=== PATIENT | female | born 1960 | race Caucasian/White ===

== ENCOUNTER → 2017-01-03 | Outpatient (CLI) | payer BC ==
[2017-01-03 17:41] LABS: BASOPHILS # (AUTO) 0.02 10*3/UL; BASOPHILS % (AUTO) 0.3 % (0-1); EOSINOPHILS # (AUTO) 0.06 10*3/UL; EOSINOPHILS % (AUTO) 0.8 % (0-8); HEMATOCRIT 44.4 % (37.0-47.0); HEMOGLOBIN 14.7 g/dL (12.0-16.0); LYMPHOCYTES # (AUTO) 1.71 10*3/uL; MEAN CORPUSCULAR HEMOGLOBIN 27.1 PG (27-31); MEAN CORPUSCULAR HGB CONC 33.1 g/dL (33-37); MEAN CORPUSCULAR VOLUME 81.8 FL (81-99); MEAN PLATELET VOLUME 10.9 FL (7.4-12.2); MONOCYTES # (AUTO) 0.48 10*3/UL (0.3-0.8); MONOCYTES % (AUTO) 6.3 % (5-15); NEUTROPHILS # (AUTO) 5.34 10*3/UL; NEUTROPHILS % (AUTO) 69.8 % (50-80); RED BLOOD COUNT 5.43 10^6/uL (4.20-5.40)
[2017-01-03 17:48] LABS: BLOOD UREA NITROGEN 14 mg/dL (7-22); CALCIUM 9.7 mg/dL (8.7-10.7); CHOL/HDL RATIO 4.44 RATIO (0-4.0); EST GLOMERULAR FILTRATION > 60 (>60 ml/min/1.73m(2)); HDL CHOLESTEROL 47 mg/dL (40-150); SERUM ALBUMIN 4.4 g/dL (3.5-4.8); SERUM CHOLESTEROL 209 mg/dL (120-200)
[2017-01-03 17:49] LABS: PLATELET MORPHOLOGY COMMENT NORMAL MORPHOLOGY (NORM); RBC MORPHOLOGY COMMENT NORMAL MORPHOLOGY (NORM); WBC MORPHOLOGY COMMENT NORMAL MORPHOLOGY (NORM)
[2017-01-03 17:52] LABS: HEMOGLOBIN A1C 5.36 % (4.2-6.0)
== END ==
LOC: LAB 10:44
PROVIDERS: ATTEND Nurse Practitioner Family
DX: E55.9 Vitamin D deficiency, unspecified (principal); E78.5 Hyperlipidemia, unspecified; I10 Essential (primary) hypertension; E66.9 Obesity, unspecified; Z13.1 Encounter for screening for diabetes mellitus
CPT/HCPCS: 80053; 80061; 82306; 83036; 84443; 85025